=== PATIENT | female | born 1965 | race Caucasian/White ===

== ENCOUNTER 2019-06-11 12:20 | Day surgery (SDC) | payer BC ==
[2019-06-10 10:58] VITALS: BMI 28.9
--- NOTE | 2019-06-10 18:16 | HP ---
Case #[id number]. CHIEF COMPLAINT: I am here for back surgery. HISTORY OF PRESENT ILLNESS: Ms. Pineda is a 54-year-old female with lower back pain and complains of both legs hurting, right side is greater than the left. She also states that she had one episode of loss of urine. She is having terrible pain down both legs, right greater than left. This has been going on for months and worsening. Recent MRI was done as were flexion and extension films. She has had episode of pain in the morning with some muscle spasms and loss of urine. There is no saddle anesthesia. However, there is no other loss of sphincter control. PAST MEDICAL HISTORY: Anxiety, high blood pressure, hypothyroidism. PAST SURGICAL HISTORY: Tummy tuck 30 years ago. Tubes tied 32 years ago. HOSPITALIZATION HISTORY: None. FAMILY HISTORY: Father , diabetes, cancer. Mother alive, hypertension, heart disease. Two children, one with diabetes and hypertension and stroke. SOCIAL HISTORY: Former tobacco use. No illicit drugs. Does not drink alcohol. CURRENT MEDICATIONS: Taking, 1. Lisinopril-hydrochlorothiazide 20-12.5 mg. 2. [place] Thyroid 60 mg. 3. Sertraline 50 mg. 4. Collagen supplement. 5. Vitamin D3. ALLERGIES: NO ALLERGIES ARE LISTED. REVIEW OF SYSTEMS: CONSTITUTIONAL: Denies fever, chills. EAR, NOSE, AND THROAT: Denies change in vision or hearing. CARDIAC: Denies chest pain, shortness of breath, or diaphoresis. PULMONARY: Denies shortness of breath, cough, or hemoptysis. GI: Denies abdominal pain, nausea, vomiting, diarrhea, change in stool formation and consistency. : Denies frequency of urination, bloody urine. Complains of one episode of urinary incontinence. SKIN: Denies rash, bruising, bleeding, or skin masses. MUSCULOSKELETAL: As per history of present illness. NEUROLOGIC: As per history of present illness. PSYCHOLOGIC: Denies anxiety, depression, behavior changes, or crying. PHYSICAL EXAMINATION: VITAL SIGNS: Height 5 feet 2 inches, weight 160 pounds. HEENT: Pupils are equal. Extraocular movements are intact. NECK: Soft, supple. No masses are noted. Range of motion is intact and nonpainful. NEUROLOGIC: Awake, alert, and oriented x3. Memory, attention, fund of knowledge normal. Cranial nerves grossly intact. Lower extremity gait and station are normal. Motor exam, there is normal strength in the iliopsoas, quadriceps, hamstrings, anterior tib, EHL, gastrocs and toe flexors. Sensory exam outer sacral dermatomes not affected. Some S1 loss in feet. IMAGING STUDIES: MRI, large L5-S1 disk crossed canal stretching both S1 nerve roots. Some CSF space beyond the disk with other sacral roots not compressed. X-rays, flexion and extension views, no instability. ASSESSMENT: Intervertebral disk disorder with radiculopathy in the lumbosacral region. PLAN: 1.L5-S1 laminectomy, microdiscectomy 4. Anesthesia clearance. INFORMED CONSENT: We discussed the indications, risks, benefits, alternatives, and expected results from surgery. The risks discussed included, but were not limited to, bleeding, infection, CSF leak, nerve damage, weakness, incontinence, cauda equina injury, paralysis, ventilator dependency, wheelchair dependency, loss of vision, cardiopulmonary complications of anesthesia or . Long-term complications discussed included but were not limited to spinal instability and future surgery. She understands the risk and is willing to proceed. Job ID: [id number] [facility]
[~2019-06-11 12:20] MED LIST: Dexamethasone 20 MG/5 ML VIAL ONE; EPHEDRINE 25 MG/5 ML SYRINGE ONE; Glycopyrrolate 0.2 MG/ML 5 ML SYRINGE ONE; Ketorolac Tromethamine 30 MG/ML VIAL ONE; Lidocaine 1% PF 5 ML VIAL ONE; Ondansetron PF 4 MG/2 ML Vial ONE; PROPOFOL 200 MG/20 ML VIAL ONE; Rocuronium Bromide 10 MG/ML (10ML VIAL) ONE; Succinylcholine Chloride 20 MG/ML 10 ml SYRINGE FS ONE
[2019-06-11 13:35] LABS: Mean Corpuscular HGB CONC 34.2 g/dL (32.0-36.0); Mean Corpuscular Hemoglobin 30.4 pg (27.0-31.0); Mean Platelet Volume 7.8 fL (7.4-10.4); Platelet Count 322 thou/uL (130-400); RBC Distribution Width 11.5 % (11.5-14.5); Red Blood Cell (RBC) Count 4.93 mill/uL (4.20-5.40); White Blood Cell (WBC) Count 11.4 thou/uL (4.8-10.8)
[2019-06-11 13:53] LABS: INR-International Normal Ratio 0.9; PTT 24.7 SEC (22.9-36.1)
[2019-06-11] MEDS ORDERED: EPINEPHrine 1 MG/ML AMP ONE (14:10)
[2019-06-11] MEDS ORDERED: Bupivacaine PF 0.5% 30 ML VIAL ONE (14:10)
[2019-06-11] MEDS ORDERED: Thrombin 5000 UNITS/5 ML VIAL ONE (14:11)
[2019-06-11] MEDS ORDERED: Scopolamine 1.5 mg/72 hour Patch ONE (14:23)
[2019-06-11] MEDS ORDERED: Midazolam HCl 2 mg/2 ml Vial ONE (14:23)
[2019-06-11] MEDS ORDERED: Fentanyl 100 MCG/2 ML VIAL ONE ×4 (14:29→18:00)
[2019-06-11] MEDS ORDERED: Lidocaine 2% Jelly 5 ML TUBE ONE (14:29)
[2019-06-11] MEDS ORDERED: Promethazine HCl 25 MG/ML VIAL ONE (17:11)
--- NOTE | 2019-06-11 17:30 | OP ---
DATE OF PROCEDURE: 06/11/2019 [employer]IVE [employer]ODUCTION WORKER: El May PA-C PREOPERATIVE INDICATION: Treat pain and prevent neurological deterioration. PREOPERATIVE DIAGNOSIS: Large lumbar intervertebral disk herniation at L5-S1 with bilateral S1 radiculopathy, right greater than left. POSTOPERATIVE DIAGNOSIS: Large lumbar intervertebral disk herniation at L5-S1 with bilateral S1 radiculopathy, right greater than left. PROCEDURES PERFORMED: Decompressive laminectomy, medial facetectomy, foraminotomy L5-S1; bilateral microdiskectomy L5-S1; and operating microscope. PREOPERATIVE MEDICATION: Ancef 2 g IV. DRAIN NUMBER: Zero. DRAIN TYPE: None. DESCRIPTION OF PROCEDURE: The patient was brought to the operating room. General endotracheal anesthesia was induced. The patient was carefully positioned prone on the operating table with her chest and hips supported by gel-filled chest rolls. A lateral fluoro radiograph was used to plan our incision. The lumbar skin was sterilely prepped and draped. We opened a midline incision with a 10 blade knife and controlled bleeding with bipolar and monopolar cautery. We used monopolar cautery to dissect through subcutaneous tissues to the thoracodorsal fascia. We incised the fascia in the midline and reflected the paraspinal muscles off the spinous process and lamina of L5 and S1. Self-retaining retractors were placed. A lateral fluoro radiograph was used to confirm the levels upon which we were operating. We then used Adson rongeur to remove the L5 spinous process and the superior spinous process of the sacrum. Using [place] rongeurs, we fashioned a laminectomy at L5-S1 and we widened our laminectomy defect by performing medial facetectomies on both sides. Both the common thecal sac and both S1 nerve roots were tented posteriorly from the ventral intervertebral disk herniation in the midline. We brought the operative microscope into the field. Under microscopic magnification and using microsurgical techniques, we carefully teased the right S1 nerve root off the disk protrusion. We incised the lateral aspect of the disk herniation and a very large fragments of disk emanated under pressure. We removed loose fragments of disk, and the thecal sac and nerve roots were well decompressed. From the left side, we gently retracted the S1 nerve root medially. Here, the annulus was still intact and with a pushing instrument, we reduced disk material by pushing it towards the right side. We went back under the S1 nerve root on the right side and found we went back over the shoulder of the S1 nerve root on the right side and found that we had expressed disk again from the contralateral side. These maneuvers were performed multiple times until no more loose fragments of disk were in the ventral epidural space. We probed the interspace itself with a pituitary rongeur and all the remaining disk was firmly adherent to the endplates. We irrigated with bacitracin irrigation. We infused local anesthetic in the paraspinal muscles. We left a small pledget of the patient's adipose tissue at the opening of the annulus ventral to the S1 nerve root on the right. We treated the wound with vancomycin powder and we closed in anatomical layers. We applied a sterile dressing. This was a clean case, no contamination. Job ID: [id number]
[2019-06-11] MEDS ORDERED: HYDROcodone/Acetaminophen 5/325 mg Tablet ONE (19:27)
[2019-06-11] MEDS ORDERED: tiZANidine HCl 4 MG TAB ONE (20:12)
== END 2019-06-11 21:16 | disposition home or self-care (01) ==
LOC: SDC 12:20
PROVIDERS: ATTEND Neurological Surgery
PROC: 0SB20ZZ Excision of Lumbar Vertebral Disc, Open Approach (ICD-10-PCS; principal; 2019-06-11)
DX: M51.16 Intervertebral disc disorders with radiculopathy, lumbar region (principal); I10 Essential (primary) hypertension; F41.9 Anxiety disorder, unspecified; E03.9 Hypothyroidism, unspecified; E66.9 Obesity, unspecified; Z68.28 Body mass index [BMI] 28.0-28.9, adult; Z79.899 Other long term (current) drug therapy; Z87.891 Personal history of nicotine dependence
CPT/HCPCS: 36415; 76000; 85027; 85610; 85730; J0171; J0690; J1100; J1885; J2001; J2250; J2405; J2550; J2704; J3010; J3370; J3490; S0020